=== PATIENT | male | born 1975 | race Asian ===

== ENCOUNTER 2021-12-10 14:31 | Outpatient (CLI) | payer BC, SELFPAY ==
--- NOTE | 2021-12-10 14:47 | PM.ST ---
Stress Test Note Date Time Seen by Provider: 16:08 Date Seen: 12/10/21 Date of test: 12/10/21 Providers Referring provider: uH Goetz Primary care provider: Hu Goetz Stress test physician: Tatyana Waters Stress Test Note Stress test ordered: Stress Echo Indication for test: Chest pain Stress test medicine: None Results discussion: Patient is referred by his provider for a exercise stress echo. His cardiac stress test medical history is reviewed, patient has consented on the stress test ordered. He is seen with the assistance of an application coordinator. Resting EKG showing sinus rhythm 85 beats per minute, resting blood pressure 138/78. Patient is exercised on a treadmill following standard [facility] protocol. His calculated target heart rate is 148 in maximal heart rate 174. He exercises to 9 minutes 2 seconds on the treadmill without any arrhythmia, no chest symptomatology. He achieved 10.5 Mets. He had a maximum heart rate of 155 beats per minute which was 104% of his target heart rate. He had a maximal blood pressure of 182/80 during exercise. He had no chest pain during exercise. Patient did experience discomfort in his legs with the exercise on the treadmill but notes that he had been having pain in his legs since he had had a recent COVID vaccine. The pain in his legs preceded the exercise. He felt some shortness of breath with the level of activity but no other symptomatology. There was no arrhythmia, no ischemic change noted on his stress test. He had a calculated rate pressure product of 25,662. Echo images are pending to couple this report for full formal diagnostic. Impression: Subjectively negative, objectively negative EKG portion of this stress test. Hypertensive response to exercise. Follow up suggested: Patient is aware that it is his primary provider will get a report once the echo is back. If he has not heard from his primary care provider's office early next week, they should call to see if the report is in or consider scheduling a followup appointment. He is discharged from here in stable condition.
[2021-12-10 16:18] VITALS: BP 144/86; PULSE 111; RESP 16
== END 2021-12-10 14:32 | disposition home or self-care (01) ==
LOC: STRESS 14:32
PROVIDERS: PCP Family Medicine; Visit Provider Family Medicine
DX: R07.89 Other chest pain (principal)
CPT/HCPCS: 93016; 93325; 93351

== ENCOUNTER 2024-06-11 09:31 | Outpatient (CLI) | payer BC, SELFPAY | END 2024-06-11 09:32 | disposition home or self-care (01) | PROVIDERS: PCP Family Medicine; Visit Provider Family Medicine | DX: E78.5 Hyperlipidemia, unspecified (principal) | CPT/HCPCS: 80053; 80061 ==

== ENCOUNTER 2025-03-18 07:08 | Outpatient (CLI) | payer OTHER, SELFPAY ==
--- NOTE | 2025-03-18 08:04 | P.ANES_ITS ---
Anesthesia Charges Start Date/Time Anesthesia Start Date: 03/18/25 Anesthesia Start Time: 07:30 Stop Date/Time Anesthesia Stop Date: 03/18/25 Anesthesia Stop Time: 08:02 Coding CPT Codes CPT Codes: LILA LWR INTST NDNH NOS - 42240 ([id number]) P1 - NORMAL HEALTHY PATIENT, QK - VENTILATION WORKER 2-4 CNCRNT ANEMaame PROC, QX - GRINDING ROOM SUPERVISOR SVC W/ MED DIRECTION
--- NOTE | 2025-03-18 08:04 | W.ANESCHARGE ---
Anesthesia Charges Start Date/Time Anesthesia Start Date: 03/18/25 Anesthesia Start Time: 07:30 Stop Date/Time Anesthesia Stop Date: 03/18/25 Anesthesia Stop Time: 08:02 Coding CPT Codes CPT Codes: LILA LWR INTST NDND NOS - 41449 ([id number]) P1 - NORMAL HEALTHY PATIENT, QK - BOTTLE CAPPER 2-4 CNCRNT ANEMaame PROC, QX - EMPLOYEE RELATIONS SPECIALIST SVC W/ MED DIRECTION
--- NOTE | 2025-03-18 09:41 | P.ANES_ITS ---
Anesthesia Charges Start Date/Time Anesthesia Start Date: 03/18/25 Anesthesia Start Time: 07:30 Stop Date/Time Anesthesia Stop Date: 03/18/25 Anesthesia Stop Time: 08:02 Coding CPT Codes CPT Codes: LILA LWR INTST NDMD NOS - 83268 ([id number]) P1 - NORMAL HEALTHY PATIENT, QK - DIPPER AND BAKER 2-4 CNCRNT ANEMaame PROC, QX - SURGICAL ASST SVC W/ MED DIRECTION
--- NOTE | 2025-03-18 09:41 | W.ANESCHARGE ---
Anesthesia Charges Start Date/Time Anesthesia Start Date: 03/18/25 Anesthesia Start Time: 07:30 Stop Date/Time Anesthesia Stop Date: 03/18/25 Anesthesia Stop Time: 08:02 Coding CPT Codes CPT Codes: LILA LWR INTST NDGA NOS - 53951 ([id number]) P1 - NORMAL HEALTHY PATIENT, QK - FEED BLENDER 2-4 CNCRNT ANEMaame PROC, QX - BED BUG EXTERMINATOR SVC W/ MED DIRECTION
== END 2025-03-18 07:09 | disposition home or self-care (01) ==
LOC: OP CLINIC 07:08
PROVIDERS: PCP Family Medicine; Visit Provider Internal Medicine
DX: Z12.11 Encounter for screening for malignant neoplasm of colon (principal); D12.0 Benign neoplasm of cecum; D12.5 Benign neoplasm of sigmoid colon; D12.4 Benign neoplasm of descending colon
CPT/HCPCS: 00811; 00812; 45380; 45385; 88305; J2704